=== PATIENT | male | born 1975 | race African-American/Black ===

== ENCOUNTER 2017-10-13 18:35 | Emergency (ER) | payer MEDICAID ==
[~2017-10-13] VITALS: Ht 160 cm; Wt 104.3 kg
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
--- NOTE | 2017-10-13 19:40 | NUR ---
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
[2017-10-13] MEDS ORDERED: IBUPROFEN 600 MG TABLET PO ONE ×2 (19:59→20:00)
--- NOTE | 2017-10-13 20:04 | NUR ---
Patient discharged to home in stable condition. Written and verbal after care instructions given. Patient verbalizes understanding of instruction. Patient discharged via wheelchair.
[2017-10-13 20:05] VITALS: BP 147/97
== END 2017-10-13 20:06 | disposition home or self-care (01) ==
LOC: ER 18:37
DX: M54.5 Low back pain (principal); G89.29 Other chronic pain
CPT/HCPCS: A4606; Z7610